=== PATIENT | male | born 1950 | race Caucasian/White ===

== ENCOUNTER 2020-10-22 10:09 | Inpatient (IN) | payer MEDICARE, OTHER ==
[~2020-10-22] VITALS: Ht 177.8 cm; Wt 100.3 kg
--- NOTE | 2020-10-22 10:57 | NUR ---
PT CAME IN [place] BILAT LOWER LEG SWELLING, ABD DISTENTION, AND RIGHT THUMB SWELLING, REDNESS AND PAIN AFTER HE POKED HIMSELF A PEN. ALL OF WHICH STARTED AROUND A WEEK AGO. PT RECENTLY HAD PACEMAKER PLACED IN JUN. HX OF DMII. EKG COMPLETE. PT RESTING IN RIRON. CONNECTED TO ALL MONITORING EQUIPMENT. MD IS BEDSIDE FOR ASSESSMENT
[2020-10-22] MEDS ORDERED: PIPERACILLIN/TAZO 3.375 GM in DEXTROSE 5% 50 ML IVPB ONE (11:30)
[2020-10-22] MEDS ORDERED: SODIUM CHLORIDE FLUSH 10ML SYR IVF ONE (11:30)
[2020-10-22] MEDS ORDERED: LIDOCAINE-MPF 1%, 5ML ONE (11:31)
[2020-10-22] MEDS ORDERED: BUPIVACAINE 0.25% ONE (11:31)
--- NOTE | 2020-10-22 11:44 | NUR ---
BLOOD CULTURES X 2 DRAWN PRIOR TO ADM OF ABX
[2020-10-22 11:56] LABS: BASOPHILS % (AUTO) 0 % (0-1); EOSINOPHILS % (AUTO) 1 % (1-7); LYMPHOCYTES % (AUTO) 8 % (22-44); MEAN CORPUSCULAR HEMOGLOBIN 31.7 pg (27.5-34.5); MEAN CORPUSCULAR HGB CONC 33.2 g/dL (33.2-36.2); MEAN PLATELET VOLUME 7.8 fL (7.4-10.4); MONOCYTES % (AUTO) 7 % (2-9); NEUTROPHILS % (AUTO) 84 % (42-75); PLATELET COUNT 353 x10^3/uL (130-400); RED CELL DISTRIBUTION WIDTH 14.2 % (9.4-14.8)
[2020-10-22 12:02] LABS: ALBUMIN 3.6 g/dL (3.4-5.0); ANION GAP 9 mmol/L (5-15); CALCIUM 9.6 mg/dL (8.5-10.1); CHLORIDE 112 mmol/L (98-107); CREATININE 1.84 mg/dL (0.7-1.3)
[2020-10-22 12:06] LABS: TROPONIN I < 0.015 ng/mL (0.000-0.045)
[2020-10-22] MEDS ORDERED: NEOSPORIN OINT. PKT 1 PACKET ONE (12:14)
--- NOTE | 2020-10-22 12:25 | NUR ---
THUMB IRRIGATED, CLEANED, AND DRESSED.
[2020-10-22] MEDS ORDERED: SODIUM CHLORIDE FLUSH 10ML SYR IVF PRN (13:30)
[2020-10-22] MEDS ORDERED: ENOXAPARIN 40 MG/0.4 ML SQ SCH (14:00)
[2020-10-22] MEDS ORDERED: BUTALB/APAP/CAFFEINE 50MG/325MG/40MG PO PRN ×2 (14:00)
[2020-10-22] MEDS ORDERED: BACLOFEN 10 MG TABLET PO PRN (14:00)
[2020-10-22] MEDS ORDERED: ENALAPRILAT 1.25 MG/ML, 2ML IVPush PRN (14:00)
[2020-10-22] MEDS ORDERED: ONDANSETRON 2MG/ML, 2ML IVPush PRN (14:00)
[2020-10-22] MEDS ORDERED: ACETAMINOPHEN 325 MG TABLET PO PRN (14:00)
[2020-10-22] MEDS ORDERED: ONDANSETRON ODT 4 MG PO PRN (14:00)
[2020-10-22] MEDS ORDERED: hydrALAzine 20 MG/ML, 1ML IVPush PRN (14:00)
[2020-10-22 14:30] VITALS: BP 141/74
[2020-10-22 14:34] LABS: FREE T4 (FREE THYROXINE) 1.25 ng/dL (0.76-1.46)
[2020-10-22] MEDS ORDERED: METF500T27 PO (15:09)
[2020-10-22] MEDS ORDERED: LISI1TAB20 PO (15:11)
[2020-10-22] MEDS ORDERED: APIX5TAB PO (15:11)
[2020-10-22] MEDS ORDERED: METO-93 PO (15:11)
[2020-10-22] MEDS ORDERED: AMLO-211 PO (15:11)
[2020-10-22] MEDS: AMPICILLIN/SULBACTAM 3 GM in SODIUM CHLORIDE 0.9% 100 ML IV SCH (15:58)
[2020-10-22] MEDS: ASCORBIC ACID 500 MG TABLET PO SCH (18:00)
[2020-10-22] MEDS: INSULIN LISPRO 100 UNITS/ML, PEN SQ-INSULIN SCH ×2 (18:23→20:06)
[2020-10-22 18:54] VITALS: BP 116/81
[2020-10-22] MEDS: MELATONIN 5 MG TABLET PO SCH (20:55)
[2020-10-23 01:34] VITALS: BP 139/58
[2020-10-23] MEDS: AMPICILLIN/SULBACTAM 3 GM in SODIUM CHLORIDE 0.9% 100 ML IV SCH ×2 (03:55→15:38)
[2020-10-23 04:59] LABS: BASOPHILS % (AUTO) 1 % (0-1); EOSINOPHILS % (AUTO) 2 % (1-7); LYMPHOCYTES % (AUTO) 10 % (22-44); MEAN CORPUSCULAR HGB CONC 33.6 g/dL (33.2-36.2); MEAN PLATELET VOLUME 7.5 fL (7.4-10.4); MONOCYTES % (AUTO) 8 % (2-9); NEUTROPHILS % (AUTO) 80 % (42-75); PLATELET COUNT 310 x10^3/uL (130-400); RED BLOOD COUNT 3.51 x10^6/uL (4.38-5.82)
[2020-10-23 05:06] LABS: ALBUMIN 3.2 g/dL (3.4-5.0); ANION GAP 9 mmol/L (5-15); CALCIUM 8.8 mg/dL (8.5-10.1); CHLORIDE 114 mmol/L (98-107); CREATININE 1.63 mg/dL (0.7-1.3)
[2020-10-23] MEDS: INSULIN LISPRO 100 UNITS/ML, PEN SQ-INSULIN SCH ×4 (07:00→20:10)
[2020-10-23 07:40] VITALS: BP 151/74
[2020-10-23] MEDS: CHOLECALCIFEROL 5,000u TAB PO SCH (07:57)
[2020-10-23] MEDS: ASCORBIC ACID 500 MG TABLET PO SCH ×2 (07:57→17:16)
[2020-10-23] MEDS: ZINC SULFATE 220 MG CAPSULE PO SCH (07:57)
[2020-10-23] MEDS: SENNA/DOCUSATE TABLET PO SCH (07:58)
[2020-10-23] MEDS ORDERED: FUROSEMIDE 40 MG TABLET PO SCH (08:00)
[2020-10-23] MEDS: METOPROLOL SUCCINATE 50 MG TAB.ER.24H PO SCH (10:44)
[2020-10-23] MEDS: APIXABAN 5 MG TABLET PO SCH ×2 (10:44→20:10)
[2020-10-23] MEDS: AMLODIPINE 10 MG TAB PO SCH (10:44)
[2020-10-23 12:12] VITALS: BP 160/89
[2020-10-23] MEDS: FUROSEMIDE 40 MG/4 ML IV SCH (17:17)
[2020-10-23 19:10] VITALS: BP 153/73
[2020-10-23] MEDS: MELATONIN 5 MG TABLET PO SCH (20:10)
[2020-10-24 00:27] VITALS: BP 151/90
[2020-10-24] MEDS: AMPICILLIN/SULBACTAM 3 GM in SODIUM CHLORIDE 0.9% 100 ML IV SCH ×2 (03:56→16:40)
[2020-10-24 05:19] LABS: BASOPHILS % (AUTO) 1 % (0-1); EOSINOPHILS % (AUTO) 1 % (1-7); LYMPHOCYTES % (AUTO) 10 % (22-44); MEAN CORPUSCULAR HEMOGLOBIN 31.6 pg (27.5-34.5); MEAN CORPUSCULAR HGB CONC 33.6 g/dL (33.2-36.2); MEAN PLATELET VOLUME 7.6 fL (7.4-10.4); MONOCYTES % (AUTO) 7 % (2-9); NEUTROPHILS % (AUTO) 81 % (42-75); PLATELET COUNT 306 x10^3/uL (130-400); RED BLOOD COUNT 3.71 x10^6/uL (4.38-5.82); RED CELL DISTRIBUTION WIDTH 14.5 % (9.4-14.8)
[2020-10-24 05:33] LABS: CHLORIDE 111 mmol/L (98-107)
[2020-10-24 05:38] LABS: ANION GAP 10 mmol/L (5-15); CALCIUM 8.9 mg/dL (8.5-10.1); CREATININE 1.73 mg/dL (0.7-1.3)
[2020-10-24 06:53] VITALS: BP 159/79
[2020-10-24] MEDS: INSULIN LISPRO 100 UNITS/ML, PEN SQ-INSULIN SCH ×4 (07:00→20:18)
[2020-10-24] MEDS: FUROSEMIDE 40 MG/4 ML IV SCH ×2 (07:07→16:40)
[2020-10-24] MEDS: ASCORBIC ACID 500 MG TABLET PO SCH ×2 (07:07→16:40)
[2020-10-24] MEDS: AMLODIPINE 10 MG TAB PO SCH (08:55)
[2020-10-24] MEDS: ZINC SULFATE 220 MG CAPSULE PO SCH (08:55)
[2020-10-24] MEDS: LISINOPRIL 20 MG TABLET PO SCH (08:55)
[2020-10-24] MEDS: APIXABAN 5 MG TABLET PO SCH ×2 (08:55→20:18)
[2020-10-24] MEDS: METOPROLOL SUCCINATE 50 MG TAB.ER.24H PO SCH (08:55)
[2020-10-24] MEDS: CHOLECALCIFEROL 5,000u TAB PO SCH (08:55)
[2020-10-24] MEDS: SENNA/DOCUSATE TABLET PO SCH (08:55)
[2020-10-24 13:37] VITALS: BP 135/75
[2020-10-24 19:33] VITALS: BP 142/75
[2020-10-24] MEDS: MELATONIN 5 MG TABLET PO SCH (20:18)
[2020-10-25 00:55] VITALS: BP 148/80
[2020-10-25] MEDS: AMPICILLIN/SULBACTAM 3 GM in SODIUM CHLORIDE 0.9% 100 ML IV SCH (03:53)
[2020-10-25 07:06] VITALS: BP 144/70
[2020-10-25] MEDS: FUROSEMIDE 40 MG/4 ML IV SCH (08:51)
[2020-10-25] MEDS: SENNA/DOCUSATE TABLET PO SCH (08:51)
[2020-10-25] MEDS: ASCORBIC ACID 500 MG TABLET PO SCH (08:51)
[2020-10-25] MEDS: APIXABAN 5 MG TABLET PO SCH (08:51)
[2020-10-25] MEDS: ZINC SULFATE 220 MG CAPSULE PO SCH (08:52)
[2020-10-25] MEDS: CHOLECALCIFEROL 5,000u TAB PO SCH (08:52)
[2020-10-25] MEDS: METOPROLOL SUCCINATE 50 MG TAB.ER.24H PO SCH (08:52)
[2020-10-25] MEDS: LISINOPRIL 20 MG TABLET PO SCH (08:52)
[2020-10-25] MEDS: AMLODIPINE 10 MG TAB PO SCH (08:52)
[2020-10-25] MEDS: INSULIN LISPRO 100 UNITS/ML, PEN SQ-INSULIN SCH ×2 (09:15→11:48)
[2020-10-25] MEDS ORDERED: LISI-170 PO (09:58)
[2020-10-25] MEDS ORDERED: AMOX1TAB64 PO (09:58)
[2020-10-25] MEDS ORDERED: APIX5TAB PO (09:58)
[2020-10-25] MEDS ORDERED: INSU100V13 SQ (09:58)
[2020-10-25] MEDS ORDERED: METO-93 PO (09:58)
[2020-10-25] MEDS ORDERED: AMLO-211 PO (09:58)
[2020-10-25] MEDS ORDERED: FURO20TA3 PO (09:58)
[2020-10-25 11:36] VITALS: BP 134/74
== END 2020-10-25 14:11 | disposition home or self-care (01) | DRG 291 ==
LOC: ED 13:19 → 4WST 14:11 → OBSVTOIN 14:11 → DCLOUNGE 10-25 14:01
PROVIDERS: ADMIT Family Medicine; ATTEND Family Medicine
DX: I11.0 Hypertensive heart disease with heart failure (principal); J18.9 Pneumonia, unspecified organism; D68.69 Other thrombophilia; R18.8 Other ascites; J91.8 Pleural effusion in other conditions classified elsewhere; I50.33 Acute on chronic diastolic (congestive) heart failure; E11.65 Type 2 diabetes mellitus with hyperglycemia; I08.1 Rheumatic disorders of both mitral and tricuspid valves; I27.20 Pulmonary hypertension, unspecified; I48.91 Unspecified atrial fibrillation; L03.011 Cellulitis of right finger; Z85.51 Personal history of malignant neoplasm of bladder; Z89.029 Acquired absence of unspecified finger(s); Z95.0 Presence of cardiac pacemaker; Z85.46 Personal history of malignant neoplasm of prostate
CPT/HCPCS: 26010; 36415; 71045; 71250; 80048; 80069; 82040; 82306; 82607; 82962; 83605; 83735; 83880; 84145; 84439; 84443; 84481; 84484; 85025; 87040; 93005; 93306; 96365; G0378; J0295; J1650; J1940; J2543

== ENCOUNTER 2021-01-23 09:31 | Outpatient (CLI) | payer OTHER | END 2021-01-23 23:59 | disposition home or self-care (01) | LOC: RAD 09:31 | PROVIDERS: ATTEND Internal Medicine Cardiovascular Disease | DX: J90 Pleural effusion, not elsewhere classified (principal); I51.7 Cardiomegaly; J84.10 Pulmonary fibrosis, unspecified; J98.11 Atelectasis ==